=== PATIENT | male | born 1965 | race Caucasian/White ===

== ENCOUNTER 2017-06-19 14:22 | Emergency (ER) | payer BC ==
[~2017-06-19] VITALS: Ht 175.3 cm; Wt 109.5 kg
[~2017-06-19 14:22] MED LIST: Levaquin PO; Theragran PO; Ultram PO; Zetia PO
[2017-06-19] MEDS ORDERED: VIBRAMYCIN100 MG PO (15:53)
[2017-06-19 16:09] VITALS: BP 135/89
== END 2017-06-19 16:24 | disposition home or self-care (01) ==
LOC: EME 14:22
PROC: 3E0234Z Introduction of Serum, Toxoid and Vaccine into Muscle, Percutaneous Approach (ICD-10-PCS; principal; 2017-06-19)
DX: S50.871A Other superficial bite of right forearm, initial encounter (principal); W54.0XXA Bitten by dog, initial encounter; Y93.01 Activity, walking, marching and hiking; Y99.0 Civilian activity done for income or pay; Z23 Encounter for immunization; Z88.0 Allergy status to penicillin
CPT/HCPCS: 99281; 99284